=== PATIENT | male | born 1930 | race Two or more races ===

== ENCOUNTER → 2018-07-10 | Outpatient (CLI) | payer OTHER, MEDICAID | LOC: FIMAGING 15:33 | PROVIDERS: ATTEND Radiology Diagnostic Radiology | DX: C65.1 Malignant neoplasm of right renal pelvis (principal) ==

== ENCOUNTER → 2018-07-23 | Outpatient (CLI) | payer OTHER, MEDICAID ==
[~2018-07-23] MED LIST: FLUMAZENIL 0.5 MG/5 ML MDV IVP ONE; FLUMAZENIL 0.5 MG/5 ML MDV IVP PRN; HEPARIN 10,000 UNIT/10 ML MDV (1,000 UNIT/ML) IVP PRN; IOPAMIDOL (ISOVUE-300) 100 ML BTL ONE; MEPERIDINE 25 MG/ML SYR IVP PRN; MIDAZOLAM 2 MG/2 ML VIAL IVP PRN; MIDAZOLAM 2 MG/2 ML VIAL ONE; NALOXONE HCL 0.4 MG/ML INJ IVP PRN; NALOXONE HCL 0.4 MG/ML INJ ONE; NS 1,000 ML IV SCH; ONDANSETRON 4 MG/2 ML VIAL IVP PRN; ONDANSETRON DISINTEGRATING 4 MG TAB PO PRN; PROTAMINE SULFATE 50 MG/5 ML VIAL IVP PRN; fentaNYL 100 MCG/2 ML INJ IVP PRN; fentaNYL 100 MCG/2 ML INJ ONE; oxyCODONE IR 5 MG TAB PO PRN
[2018-07-23 12:44] LABS: INR 1.03 (0.83-1.16); PROTIME(PATIENT) 13.7 SEC (12.0-15.0)
--- NOTE | 2018-07-23 13:07 | PDPROPOC ---
Sedation Plan of Care Sedation Plan of Care: vital signs stable, mental status noted, patient educated of risks, benefits, alternatives, patient can tolerate sedation ASA Classification: ASA 3 Planned drugs: fentanyl, midazolam Mallampati Score: Class 2 Mallampati Reference Image: Patient passed 3-3-2 rule?: Yes
--- NOTE | 2018-07-23 13:09 | PDGENHP ---
History & Physical Chief Complaint: RT RENAL CANCER History of Present Illness: S/P LT NEPRECTOMY. 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 Pertinent Past, Social, Family History: HERNIA REPAIR, NEPHRECTOMY; Relevant Physical Exam: LABS WNL Cardiorespiratory Assessment: RRR, CTA
--- NOTE | 2018-07-23 15:31 | PDRADPN ---
Radiology Procedure Note Date of Procedure: 07/23/18 Radiologist: Ada Aaron Anesthesia: IV Sedation Pre-op Diagnosis: RIGHT RENAL MASS Post-op Diagnosis: SAME Indication: ANGIOGRAM WITH EMBOLIZATION Procedure: RT RENAL ANGIOGRAM Finding(s): VERY SCANT, TINY BLOOD VESSELS GOING TO MASS. NOT AMENDABLE FOR EMBOLIZATION. Inf/Abcess present in the surg proc area at time of surgery?: No
[2018-07-23 18:46] VITALS: BP 111/64
== END ==
LOC: FIMAGING 11:34 → UNDOADMOB 13:09 → F3N 13:09 → UNDODISOB 18:49
PROVIDERS: ATTEND Radiology Diagnostic Radiology
PROC: B4161ZZ Fluoroscopy of Right Renal Artery using Low Osmolar Contrast (ICD-10-PCS; principal; 2018-07-23 15:35)
DX: C64.1 Malignant neoplasm of right kidney, except renal pelvis (principal); N28.1 Cyst of kidney, acquired
CPT/HCPCS: 36253; 99152; C1760; C1769; C1894; J1644; J2250; J3010; Q9967; J2310

== ENCOUNTER 2018-09-25 09:47 | Outpatient (CLI) | payer OTHER, MEDICAID ==
[2018-09-25] MEDS ORDERED: fentaNYL 100 MCG/2 ML INJ IVP PRN ×2 (11:12→12:23)
[2018-09-25] MEDS ORDERED: MIDAZOLAM 2 MG/2 ML VIAL IVP PRN (11:12)
[2018-09-25] MEDS ORDERED: FLUMAZENIL 0.5 MG/5 ML MDV IVP PRN (11:12)
[2018-09-25] MEDS ORDERED: NALOXONE HCL 0.4 MG/ML INJ IVP PRN ×2 (11:12→12:23)
[2018-09-25] MEDS ORDERED: MEPERIDINE 25 MG/ML SYR IVP PRN (11:12)
[2018-09-25] MEDS ORDERED: NS 1,000 ML IV SCH (11:15)
[2018-09-25 11:17] LABS: INR 0.99 (0.83-1.16); PROTIME(PATIENT) 13.3 SEC (12.0-15.0)
[2018-09-25] MEDS ORDERED: PROPOFOL/EMULSION 500 MG/50 ML BOTTLE IV ONE (11:57)
[2018-09-25] MEDS ORDERED: PROPOFOL 200 MG/20 ML VIAL ONE (11:57)
[2018-09-25] MEDS ORDERED: LIDOCAINE 1% 300 MG/30 ML SDV ONE (12:06)
[2018-09-25] MEDS ORDERED: fentaNYL 100 MCG/2 ML INJ ONE (12:06)
[2018-09-25] MEDS ORDERED: HYDROCODONE/APAP 5/325 TAB PO PRN (12:23)
[2018-09-25] MEDS ORDERED: ENALAPRILAT DIHYDRATE 1.25 MG/ML VIAL IVP PRN (12:23)
[2018-09-25] MEDS ORDERED: LR 500 ML IV PRN (12:23)
[2018-09-25] MEDS ORDERED: ONDANSETRON 4 MG/2 ML VIAL IVP PRN (12:23)
[2018-09-25] MEDS ORDERED: PROMETHAZINE HCL 25 MG/ML INJ IVP PRN (12:23)
[2018-09-25] MEDS ORDERED: DEXAMETHASONE 4 MG/ML VIAL IVP PRN (12:23)
[2018-09-25] MEDS ORDERED: ACETAMINOPHEN 325 MG TAB PO PRN (15:43)
--- NOTE | 2018-09-25 15:46 | PDRADPN ---
Radiology Procedure Note Date of Procedure: 09/25/18 Radiologist: Ada Aaron Anesthesia: GET(General Endotracheal) Pre-op Diagnosis: RT RENAL MASS Post-op Diagnosis: SAME Indication: DEBULKING PROCEDURE REQUESTED. Procedure: BIOPSY. RENAL MICROWAVE ABLATION Inf/Abcess present in the surg proc area at time of surgery?: No
--- NOTE | 2018-09-25 15:46 | PDGENHP ---
History & Physical Chief Complaint: RT RENAL MASS History of Present Illness: MASS HAS BEEN INCREASING IN SIZE. NO TISSUE DIAGNOSIS. NOT A SURGICAL CANDIDATE PER UROLOGY. ABLATION REQUESTED. DISCUSSED IN DETAIL WITH PATIENT AND FAMILY. PLEASE SEE PRIOR PROCEDURE AND CONSULTS. Pertinent Past, Social, Family History: SUPORTIVE FAMILY. NON SMOKER. Relevant Physical Exam: IN NO DISTRESS. Cardiorespiratory Assessment: RRR, CTA
[2018-09-25 17:15] VITALS: BP 123/67
== END 2018-09-25 17:47 | disposition home or self-care (01) ==
LOC: FSGY 09:47
PROVIDERS: ATTEND Radiology Diagnostic Radiology
DX: C64.9 Malignant neoplasm of unspecified kidney, except renal pelvis (principal)
CPT/HCPCS: 50593; 77013; 88173; 88305; 88333; J2704; J3010